=== PATIENT | female | born 1990 | race Caucasian/White ===

== ENCOUNTER 2018-05-04 08:26 | Emergency (ER) | payer BC ==
[~2018-05-04] VITALS: Ht 157.5 cm; Wt 75.0 kg
[2018-05-04] MEDS ORDERED: VALT1TAB PO (08:35)
[2018-05-04] MEDS ORDERED: PRED20TA PO (08:35)
[2018-05-04] MEDS ORDERED: FIOR1CAP PO (08:35)
[2018-05-04] MEDS ORDERED: XANA0.5T PO (08:35)
[2018-05-04] MEDS ORDERED: diphenhydrAMINE INJ 50MG/ML VIAL (J1200) IV STA (09:17)
[2018-05-04 09:19] LABS: BASO % 0.4 % (0.0-1.0); EOS # 0.2 10^3/uL (0.0-0.50); EOS % 2.8 % (0.0-3.0); HEMATOCRIT 42.4 % (36.0-47.0); HEMOGLOBIN 14.2 g/dl (12.0-15.5); LYMPH # 2.1 10^3/uL (1.5-6.5); LYMPH % 38.7 % (24.0-44.0); MEAN CORPUSCULAR HEMOGLOBIN 30.1 pg (27.0-33.0); MEAN CORPUSCULAR HGB CONC 33.5 g/dl (32.0-36.5); MEAN CORPUSCULAR VOLUME 89.8 fl (80.0-96.0); MONO # 0.3 10^3/uL (0.0-0.8); MONO % 5.9 % (0.0-5.0); NEUTROPHILS # 2.8 10^3/uL (1.8-7.7); PLATELET COUNT, AUTOMATED 205 10^3/uL (150-450); RED BLOOD COUNT 4.72 10^6/uL (4.00-5.40); WHITE BLOOD COUNT 5.4 10^3/uL (4.0-10.0)
[2018-05-04 09:25] LABS: APPEARANCE, URINE HAZY (CLEAR); BACTERIA, URINE AUTO NEGATIVE (NEGATIVE); BILIRUBIN, URINE AUTO NEGATIVE (NEGATIVE); BLOOD, URINE BLOOD NEGATIVE (NEGATIVE); CALCIUM OXALATE CRYSTALS LARGE; COLOR, URINE YELLOW (YELLOW); GLUCOSE, URINE (UA) AUTO NEGATIVE (NEGATIVE); KETONE, URINE AUTO TRACE mg/dL (NEGATIVE); LEUKOCYTE ESTERASE, URINE AUTO NEGATIVE (NEGATIVE); MUCUS, URINE SMALL (NEGATIVE); NITRITE, URINE AUTO NEGATIVE (NEGATIVE); PROTEIN, URINE AUTO NEGATIVE (NEGATIVE); RBC, URINE AUTO 12 /HPF (0-3); SPECIFIC GRAVITY URINE AUTO 1.043 (1.002-1.035); SQUAMOUS EPITHELIAL CELL UR AU 3 /HPF (0-6); UROBILINOGEN, URINE AUTO 0.2 mg/dL (0.0-2.0); WBC, URINE AUTO 3 /HPF (0-3)
[2018-05-04] MEDS ORDERED: KETOROLAC 30 MG/ML VIAL (J1885) IV ONE (09:30)
[2018-05-04] MEDS ORDERED: NS 1,000 ML IV ONE (09:30)
[2018-05-04] MEDS ORDERED: METOCLOPRAMIDE INJ 10MG/2ML VIAL (J2765) IV ONE (09:30)
[2018-05-04 09:40] LABS: ALBUMIN 3.9 GM/DL (3.2-5.2); ALT/SGPT 26 U/L (12-78); BILIRUBIN,DIRECT < 0.1 MG/DL (0.0-0.2); BILIRUBIN,TOTAL 0.2 MG/DL (0.2-1.0); BLOOD UREA NITROGEN 11 MG/DL (7-18); CALCIUM LEVEL 8.3 MG/DL (8.5-10.1); CARBON DIOXIDE LEVEL 24 MEQ/L (21-32); CHLORIDE LEVEL 110 MEQ/L (98-107); CREATININE FOR GFR 0.85 MG/DL (0.55-1.30); GLOMERULAR FILTRATION RATE > 60.0 (>60); GLUCOSE, FASTING 95 MG/DL (70-100); POTASSIUM SERUM 3.6 MEQ/L (3.5-5.1); SODIUM LEVEL 144 MEQ/L (136-145)
[2018-05-04 09:51] LABS: INFLUENZA A AMPLIFICATION NEGATIVE (NEGATIVE); INFLUENZA B AMPLIFICATION NEGATIVE (NEGATIVE)
[2018-05-04 09:52] LABS: HCG, SERUM QUALITATIVE NEGATIVE (NEGATIVE)
--- NOTE | 2018-05-04 10:27 | REP ---
Chest one-view HISTORY: SIRS Comparison: None The lungs are clear. The heart is normal in size. The pulmonary vasculature is normal in appearance. Impression: No acute disease. Electronically Signed by Sim Quintana MD 05/04/2018 10:18 A
[2018-05-04] MEDS ORDERED: LORazepam 2 MG/ML VIAL (J2060) IV STA (10:49)
[2018-05-04] MEDS ORDERED: ZOFR4TAB14 PO (12:11)
[2018-05-04] MEDS ORDERED: GABA-843 PO (12:11)
[2018-05-04 12:31] VITALS: BP 108/59
== END 2018-05-04 12:34 | disposition home or self-care (01) ==
LOC: M ED 08:26
DX: B02.9 Zoster without complications (principal); B02.29 Other postherpetic nervous system involvement
CPT/HCPCS: 36415; 71045; 80048; 80076; 81001; 83605; 84703; 85025; 87040; 87086; 87502; 93041; 94760; 96361; 96374; 96375; 99284; J1200; J1885; J2060; J2765

== ENCOUNTER → 2018-08-07 | Outpatient (CLI) | payer BC ==
[~2018-08-07] MED LIST: AUGM875T28 PO; CLON0.5T8 PO; FIOR1CAP PO; GABA-843 PO; LAMI1TAB7 PO; LAMI25TA PO; LEXA1TAB PO; LEXA1TAB2 PO; PRED20TA PO; VALT1TAB PO; XANA0.5T PO; YAZ1TAB PO; ZOFR4TAB14 PO
== END ==
LOC: M LAB 11:25
PROVIDERS: ATTEND Registered Nurse
DX: Z32.01 Encounter for pregnancy test, result positive (principal); N91.2 Amenorrhea, unspecified

== ENCOUNTER → 2019-03-04 | Outpatient (CLI) | payer BC ==
[2019-03-04 12:05] LABS: APPEARANCE, URINE HAZY (CLEAR); BACTERIA, URINE AUTO 1+ (NEGATIVE); BILIRUBIN, URINE AUTO NEGATIVE (NEGATIVE); BLOOD, URINE BLOOD 3+ (NEGATIVE); COLOR, URINE YELLOW (YELLOW); GLUCOSE, URINE (UA) AUTO NEGATIVE (NEGATIVE); KETONE, URINE AUTO NEGATIVE (NEGATIVE); LEUKOCYTE ESTERASE, URINE AUTO 1+ (NEGATIVE); MUCUS, URINE SMALL (NEGATIVE); NITRITE, URINE AUTO NEGATIVE (NEGATIVE); PROTEIN, URINE AUTO NEGATIVE (NEGATIVE); RBC, URINE AUTO 33 /HPF (0-3); SPECIFIC GRAVITY URINE AUTO 1.017 (1.002-1.035); SQUAMOUS EPITHELIAL CELL UR AU 4 /HPF (0-6); UROBILINOGEN, URINE AUTO 0.2 mg/dL (0.0-2.0); WBC, URINE AUTO 14 /HPF (0-3)
[2019-03-04 12:07] LABS: BASO % 0.5 % (0.0-1.0); EOS # 0.1 10^3/uL (0.0-0.5); EOS % 2.2 % (0.0-3.0); HEMATOCRIT 41.9 % (36.0-47.0); HEMOGLOBIN 13.9 g/dl (12.0-15.5); LYMPH # 2.5 10^3/uL (1.5-5.0); LYMPH % 38.5 % (24.0-44.0); MEAN CORPUSCULAR HEMOGLOBIN 29.1 pg (27.0-33.0); MEAN CORPUSCULAR HGB CONC 33.2 g/dl (32.0-36.5); MEAN CORPUSCULAR VOLUME 87.8 fl (80.0-96.0); MONO # 0.3 10^3/uL (0.0-0.8); NEUTROPHILS # 3.5 10^3/uL (1.5-8.5); NEUTROPHILS % 53.6 % (36.0-66.0); PLATELET COUNT, AUTOMATED 195 10^3/uL (150-450); RED BLOOD COUNT 4.77 10^6/uL (4.00-5.40); WHITE BLOOD COUNT 6.5 10^3/uL (4.0-10.0)
[2019-03-04 12:42] LABS: ALBUMIN 3.9 GM/DL (3.2-5.2); ALT/SGPT 26 U/L (12-78); BILIRUBIN,TOTAL 0.6 MG/DL (0.2-1.0); BLOOD UREA NITROGEN 8 MG/DL (7-18); CALCIUM LEVEL 8.5 MG/DL (8.5-10.1); CARBON DIOXIDE LEVEL 26 MEQ/L (21-32); CHLORIDE LEVEL 106 MEQ/L (98-107); CHOLESTEROL LEVEL 254 MG/DL (<200); CHOLESTEROL RISK RATIO 3.386 (<5); CREATININE FOR GFR 0.81 MG/DL (0.55-1.30); GLOMERULAR FILTRATION RATE > 60.0 (>60); GLUCOSE, FASTING 83 MG/DL (70-100); HDL CHOLESTEROL 75 MG/DL (>40); LDL CHOLESTEROL 147 MG/DL (<100); NON-HDL-C 179 MG/DL; POTASSIUM SERUM 3.8 MEQ/L (3.5-5.1); SODIUM LEVEL 139 MEQ/L (136-145); TOTAL PROTEIN 6.9 GM/DL (6.4-8.2); TRIGLYCERIDES LEVEL 160 MG/DL (<150)
[2019-03-05 08:17] LABS: TOTAL 25(OH) VITAMIN D 22.4 NG/ML (30.0-100.0)
[2019-03-05 08:57] LABS: HIV 1&2 SCREEN CENTAUR NEGATIVE (NEGATIVE)
== END ==
LOC: M LAB 11:22
PROVIDERS: ATTEND Registered Nurse
DX: N26.1 Atrophy of kidney (terminal) (principal); E66.9 Obesity, unspecified

== ENCOUNTER → 2019-03-12 | Outpatient (CLI) | payer BC ==
[~2019-03-12] MED LIST changes: +PROHANCE 279.3MG/ML 15ML VIAL (A9576) As Ordered ONE; +PROHANCE 279.3MG/ML 5ML VIAL (A9576) As Ordered ONE
--- NOTE | 2019-03-12 16:57 | REP ---
MRI brain: 03/13/2019. Indication: Unequal pupils. Blurred vision. Comparison: None. Technique: Multiplanar short and long TR sequences of the brain were obtained without IV Gadolinium. Findings: There are no areas of restricted diffusion. There is no intracranial mass effect or hydrocephalous. No significant intracranial hemorrhage is present. No significant signal abnormalities are present within the brainstem or brain parenchyma. The large intracranial flow voids are present and unremarkable. The midline structures, and craniocervical junction are unremarkable. No significant ocular or intraorbital abnormalities are detected. Impression: No acute intracranial process. Unremarkable brain. Electronically Signed by Juliocesar Reyes DO 03/12/2019 04:49 P
== END ==
LOC: M RAD 15:17
PROVIDERS: ATTEND Registered Nurse
DX: H57.02 Anisocoria (principal)

== ENCOUNTER → 2019-05-12 | Outpatient (CLI) | payer BC ==
[~2019-05-12] MED LIST changes: +CLON0.5T2 PO; -CLON0.5T8 PO; -PROHANCE 279.3MG/ML 15ML VIAL (A9576) As Ordered ONE; -PROHANCE 279.3MG/ML 5ML VIAL (A9576) As Ordered ONE
== END ==
LOC: M LAB 12:55
PROVIDERS: ATTEND Registered Nurse
DX: N91.2 Amenorrhea, unspecified (principal)

== ENCOUNTER 2019-11-22 12:11 | Outpatient (RCR) | payer BC | END 2019-11-23 | LOC: M PT 12:11 | PROVIDERS: ATTEND Specialist | DX: S43.005D Unspecified dislocation of left shoulder joint, subsequent encounter (principal); S42.252D Displaced fracture of greater tuberosity of left humerus, subsequent encounter for fracture with routine healing; G54.0 Brachial plexus disorders; V86.95XA Unspecified occupant of 3- or 4- wheeled all-terrain vehicle (ATV) injured in nontraffic accident, initial encounter; Y99.8 Other external cause status; Y92.9 Unspecified place or not applicable ==

== ENCOUNTER → 2020-06-19 | Outpatient (CLI) | payer BC ==
[~2020-06-19] MED LIST changes: +GABA-282 PO; -GABA-843 PO
--- NOTE | 2020-06-20 09:26 | REP ---
INDICATION: INFERTILITY COMPARISON: None. TECHNIQUE: Transabdominal pelvic ultrasound followed by transvaginal examination for better evaluation of the endometrium and adnexa with color Doppler evaluation of the ovaries. FINDINGS: Bladder is unremarkable and measures 8.4 x 10.7 x 7.1 cm. Normal anteverted uterus measures 5.9 x 2.4 x 3.2 cm. The endometrial complex measures 4.0 mm thickness. No discrete uterine or endometrial abnormalities are appreciated. The right ovary is normal in appearance and vascularity without torsion measuring 3.0 x 2.0 x 2.4 cm (RI 0.57). The left ovary/adnexa measures 5.7 x 4.4 x 6.1 cm (RI 0.51) and includes a 5.7 x 4.0 x 5.0 cm complex cystic mass with fat components and shadowing possibly reflecting dermoid cyst. Trace pelvic free fluid is nonspecific. IMPRESSION: 1. Normal uterus and right ovary. 2. Right adnexal lesion as described above may represent dermoid cyst/teratoma. Consider correlation and follow-up with CT or MRI for further investigation and confirmation. <Electronically signed by David Curtis > 06/20/20 0922
== END ==
LOC: M RAD 12:30
PROVIDERS: ATTEND Obstetrics & Gynecology
DX: Z01.419 Encounter for gynecological examination (general) (routine) without abnormal findings (principal); N97.9 Female infertility, unspecified

== ENCOUNTER → 2020-08-07 | Outpatient (CLI) | payer BC ==
--- NOTE | 2020-08-07 09:55 | REP ---
INDICATION: OVARIAN CYST FOLLOW UP COMPARISON: 06/19/2020 TECHNIQUE: Transabdominal pelvic ultrasound followed by transvaginal examination for better evaluation of the endometrium and adnexa with color Doppler evaluation of the ovaries. FINDINGS: Bladder is unremarkable and measures 6.7 x 4.2 x 3.4 cm. Normal anteverted uterus measures 6.2 x 2.6 x 3.4 cm. The endometrial complex measures 6.2 mm thickness. No discrete uterine or endometrial abnormalities are appreciated. Right ovary is normal in appearance and vascularity measuring 3.2 x 2.0 x 2.6 cm (RI 0.46) and includes 1.5 cm presumed physiologic cyst/dominant follicle. The left ovary measures 5.6 x 4.8 x 5.8 cm (RI 0.58) and again includes a 5.7 x 4.6 x 5.8 cm complex lesion containing fluid, fat, and possible calcifications with posterior shadowing unchanged from prior examination and compatible with teratoma/dermoid. Small amount of free fluid in the pelvis is nonspecific and likely physiologic. IMPRESSION: 1. Complex lesion in the LEFT ovary again noted and compatible with dermoid/teratoma. (Previous report erroneously mentions this to be in the right ovary in the impression but correctly noted as left sided lesion in the findings). 2. Normal uterus and right ovary. <Electronically signed by David Curtis > 08/07/20 0951
== END ==
LOC: M RAD 09:14
PROVIDERS: ATTEND Obstetrics & Gynecology
DX: N83.292 Other ovarian cyst, left side (principal)

== ENCOUNTER → 2021-03-15 | Outpatient (REF) ==
[2021-03-15 13:15] LABS: RSV AMPLIFICATION NEGATIVE (NEGATIVE)
== END ==
LOC: M EMP 11:46
PROVIDERS: ATTEND Family Medicine
DX: Z20.822 Contact with and (suspected) exposure to COVID-19 (principal)

== ENCOUNTER → 2021-03-21 | Outpatient (REF) | LOC: M LABSMTC 11:32 | PROVIDERS: ATTEND Pediatrics | DX: Z20.822 Contact with and (suspected) exposure to COVID-19 (principal) ==

== ENCOUNTER → 2021-05-24 | Outpatient (REF) ==
[2021-05-24 08:11] LABS: RSV AMPLIFICATION NEGATIVE (NEGATIVE)
== END ==
LOC: M EMP 07:25
PROVIDERS: ATTEND Family Medicine
DX: Z20.822 Contact with and (suspected) exposure to COVID-19 (principal)

== ENCOUNTER → 2021-06-13 | Outpatient (REF) | LOC: M LABSMTC 10:18 | PROVIDERS: ATTEND Pediatrics | DX: Z11.52 Encounter for screening for COVID-19 (principal) ==

== ENCOUNTER → 2021-06-15 | Outpatient (REF) | LOC: M LABSMTC 13:31 | PROVIDERS: ATTEND Pediatrics | DX: Z11.52 Encounter for screening for COVID-19 (principal) ==

== ENCOUNTER → 2021-10-11 | Outpatient (REF) ==
[2021-10-11 08:35] LABS: RSV AMPLIFICATION NEGATIVE (NEGATIVE)
== END ==
LOC: M EMP 07:44
PROVIDERS: ATTEND Family Medicine
DX: Z20.822 Contact with and (suspected) exposure to COVID-19 (principal); Z11.52 Encounter for screening for COVID-19

== ENCOUNTER → 2021-12-25 | Outpatient (REF) | LOC: M EMP 08:41 | PROVIDERS: ATTEND Family Medicine | DX: Z11.52 Encounter for screening for COVID-19 (principal) ==

== ENCOUNTER → 2021-12-26 | Outpatient (REF) | LOC: M EMP 08:36 | PROVIDERS: ATTEND Family Medicine | DX: Z11.52 Encounter for screening for COVID-19 (principal) ==

== ENCOUNTER → 2021-12-26 | Outpatient (REF) | LOC: M EMP 08:37 | PROVIDERS: ATTEND Family Medicine | DX: Z11.52 Encounter for screening for COVID-19 (principal) ==

== ENCOUNTER → 2022-04-22 | Outpatient (CLI) | payer BC | LOC: M LAB 08:02 | PROVIDERS: ATTEND Obstetrics & Gynecology | DX: Z32.00 Encounter for pregnancy test, result unknown (principal) ==

== ENCOUNTER → 2022-04-24 | Outpatient (CLI) | payer BC | LOC: M LAB 06:50 | PROVIDERS: ATTEND Obstetrics & Gynecology | DX: O09.00 Supervision of pregnancy with history of infertility, unspecified trimester (principal) ==

== ENCOUNTER → 2022-04-26 | Outpatient (CLI) | payer BC | LOC: M LAB 07:11 | PROVIDERS: ATTEND Obstetrics & Gynecology | DX: O09.00 Supervision of pregnancy with history of infertility, unspecified trimester (principal); Z3A.00 Weeks of gestation of pregnancy not specified ==

== ENCOUNTER → 2022-04-29 | Outpatient (CLI) | payer BC | LOC: M LAB 07:09 | PROVIDERS: ATTEND Obstetrics & Gynecology | DX: O09.00 Supervision of pregnancy with history of infertility, unspecified trimester (principal) ==

== ENCOUNTER → 2022-05-30 | Outpatient (REF) | payer BC ==
[2022-05-30 13:29] LABS: HEMATOCRIT 43.3 % (36.0-47.0); HEMOGLOBIN 14.3 g/dl (12.0-15.5); MEAN CORPUSCULAR HEMOGLOBIN 29.6 pg (27.0-33.0); MEAN CORPUSCULAR VOLUME 89.6 fl (80.0-96.0); PLATELET COUNT, AUTOMATED 191 10^3/uL (150-450); RED BLOOD COUNT 4.83 10^6/uL (4.00-5.40); WHITE BLOOD COUNT 6.9 10^3/uL (4.0-10.0)
[2022-05-30 14:26] LABS: HIV 1&2 SCREEN CENTAUR NEGATIVE (NEGATIVE)
[2022-05-30 14:34] LABS: HEPATITIS C VIRUS ABY INDEX 0.1 INDEX (<0.8)
[2022-05-30 14:36] LABS: HCG, SERUM QUANTITATIVE 113817.5 MIU/ML (<4.2)
== END ==
LOC: M LAB REF 12:20
PROVIDERS: ATTEND Obstetrics & Gynecology
DX: Z34.81 Encounter for supervision of other normal pregnancy, first trimester (principal)

== ENCOUNTER → 2022-06-11 | Outpatient (REF) ==
[2022-06-11 11:04] LABS: RSV AMPLIFICATION NEGATIVE (NEGATIVE)
== END ==
LOC: M EMP 09:11
PROVIDERS: ATTEND Family Medicine
DX: Z20.822 Contact with and (suspected) exposure to COVID-19 (principal)

== ENCOUNTER → 2022-06-17 | Outpatient (REF) ==
[2022-06-17 10:55] LABS: RSV AMPLIFICATION NEGATIVE (NEGATIVE)
== END ==
LOC: M EMP 08:34
PROVIDERS: ATTEND Family Medicine
DX: Z00.00 Encounter for general adult medical examination without abnormal findings (principal)

== ENCOUNTER → 2022-07-16 | Outpatient (REF) ==
[~2022-07-16] MED LIST changes: +BUTA-198
== END ==
LOC: M LABSMTC 09:18
PROVIDERS: ATTEND Family Medicine
DX: Z20.822 Contact with and (suspected) exposure to COVID-19 (principal)

== ENCOUNTER 2022-07-17 09:14 | Emergency (ER) | payer BC ==
[~2022-07-17] VITALS: Ht 157.5 cm; Wt 81.8 kg
[~2022-07-17 09:14] MED LIST changes: -BUTA-198
[2022-07-17] MEDS ORDERED: BUTA-198 (09:25)
[2022-07-17 10:06] LABS: BASO % 0.1 % (0.0-1.0); EOS % 0.5 % (0.0-3.0); HEMATOCRIT 42.6 % (36.0-47.0); HEMOGLOBIN 14.5 g/dl (12.0-15.5); LYMPH # 1.6 10^3/uL (1.5-5.0); LYMPH % 19.4 % (24.0-44.0); MEAN CORPUSCULAR HEMOGLOBIN 29.8 pg (27.0-33.0); MEAN CORPUSCULAR VOLUME 87.5 fl (80.0-96.0); MONO # 0.4 10^3/uL (0.0-0.8); MONO % 4.2 % (2.0-8.0); NEUTROPHILS # 6.4 10^3/uL (1.5-8.5); NEUTROPHILS % 75.4 % (36.0-66.0); PLATELET COUNT, AUTOMATED 170 10^3/uL (150-450); RED BLOOD COUNT 4.87 10^6/uL (4.00-5.40); WHITE BLOOD COUNT 8.4 10^3/uL (4.0-10.0)
[2022-07-17 10:13] LABS: APPEARANCE, URINE HAZY (CLEAR); BACTERIA, URINE AUTO 1+ (NEGATIVE); BILIRUBIN, URINE AUTO NEGATIVE (NEGATIVE); BLOOD, URINE BLOOD NEGATIVE (NEGATIVE); COLOR, URINE YELLOW (YELLOW); GLUCOSE, URINE (UA) AUTO NEGATIVE (NEGATIVE); KETONE, URINE AUTO NEGATIVE (NEGATIVE); LEUKOCYTE ESTERASE, URINE AUTO NEGATIVE (NEGATIVE); MUCUS, URINE SMALL (NEGATIVE); NITRITE, URINE AUTO NEGATIVE (NEGATIVE); PROTEIN, URINE AUTO NEGATIVE (NEGATIVE); RBC, URINE AUTO 0 /HPF (0-3); SPECIFIC GRAVITY URINE AUTO 1.034 (1.002-1.035); SQUAMOUS EPITHELIAL CELL UR AU 5 /HPF (0-6); UROBILINOGEN, URINE AUTO 0.2 mg/dL (0.0-2.0); WBC, URINE AUTO 1 /HPF (0-3)
[2022-07-17 10:34] LABS: LIPASE 24 U/L (12-53)
[2022-07-17 11:16] LABS: ALBUMIN 3.2 G/DL (3.2-5.2); ALKALINE PHOSPHATASE 57 U/L (46-116); ALT/SGPT 10 U/L (7.0-40); AST/SGOT 13 U/L (<34); BILIRUBIN,DIRECT < 0.1 MG/DL (<0.4); BILIRUBIN,TOTAL 0.4 MG/DL (0.3-1.2); BLOOD UREA NITROGEN 8 MG/DL (9-23); CALCIUM LEVEL 9.1 MG/DL (8.5-10.1); CARBON DIOXIDE LEVEL 23 MMOL/L (20-31); CHLORIDE LEVEL 105 MMOL/L (98-107); CREATININE FOR GFR 0.56 MG/DL (0.55-1.30); GLOMERULAR FILTRATION RATE > 60.0 (>60); GLUCOSE, FASTING 87 MG/DL (60-100); SODIUM LEVEL 136 MMOL/L (136-145)
[2022-07-17] MEDS ORDERED: ACETAMINOPHEN 500 MG TAB PO ONE (11:55)
[2022-07-17] MEDS ORDERED: NS 1,000 ML IV ONE (11:55)
[2022-07-17 14:02] VITALS: BP 116/64
[2022-07-17 18:13] LABS: TOTAL PROTEIN 6.7 G/DL (5.7-8.2)
== END 2022-07-17 14:01 | disposition home or self-care (01) ==
LOC: M ED 09:14
DX: R10.9 Unspecified abdominal pain (principal)

== ENCOUNTER → 2022-07-22 | Outpatient (REF) ==
[~2022-07-22] MED LIST changes: +BUTA-198
== END ==
LOC: M EMP 07:51
PROVIDERS: ATTEND Family Medicine
DX: Z11.52 Encounter for screening for COVID-19 (principal)

== ENCOUNTER → 2022-08-20 | Outpatient (CLI) | payer BC | LOC: M WHC 11:23 | PROVIDERS: ATTEND Advanced Practice Midwife | DX: O09.812 Supervision of pregnancy resulting from assisted reproductive technology, second trimester (principal); Z3A.21 21 weeks gestation of pregnancy ==

== ENCOUNTER 2022-09-11 05:19 | Emergency (ER) | payer BC ==
[~2022-09-11] VITALS: Ht 157.5 cm; Wt 83.2 kg
[2022-09-11 05:20] VITALS: BP 118/71
[2022-09-11] MEDS ORDERED: BUSP5TA (05:27)
[2022-09-11] MEDS ORDERED: LAMO25TA4 (05:27)
== END 2022-09-11 09:00 | disposition home or self-care (01) ==
LOC: M ED 05:19
DX: M79.661 Pain in right lower leg (principal); Z3A.24 24 weeks gestation of pregnancy

== ENCOUNTER → 2022-09-23 | Outpatient (CLI) | payer BC ==
[~2022-09-23] MED LIST changes: +BUSP5TA; +LAMO25TA4
[2022-09-23 10:51] LABS: HEMATOCRIT 37.7 % (36.0-47.0); HEMOGLOBIN 12.2 g/dl (12.0-15.5); MEAN CORPUSCULAR HEMOGLOBIN 29.5 pg (27.0-33.0); MEAN CORPUSCULAR HGB CONC 32.4 g/dl (32.0-36.5); MEAN CORPUSCULAR VOLUME 91.3 fl (80.0-96.0); PLATELET COUNT, AUTOMATED 166 10^3/uL (150-450); RED BLOOD COUNT 4.13 10^6/uL (4.00-5.40); WHITE BLOOD COUNT 9.3 10^3/uL (4.0-10.0)
[2022-09-23 12:28] LABS: GC DNA AMPLIFICATION NEGATIVE (NEGATIVE)
== END ==
LOC: M PLALAB 08:07
PROVIDERS: ATTEND Advanced Practice Midwife
DX: O99.342 Other mental disorders complicating pregnancy, second trimester (principal); Z3A.00 Weeks of gestation of pregnancy not specified

== ENCOUNTER → 2022-10-23 | Outpatient (REF) | LOC: M EMP 08:52 | PROVIDERS: ATTEND Family Medicine | DX: Z11.52 Encounter for screening for COVID-19 (principal) ==

== ENCOUNTER 2022-11-27 14:38 | Emergency (ER) | payer BC ==
[~2022-11-27] VITALS: Ht 157.5 cm; Wt 85.4 kg
[~2022-11-27 14:38] MED LIST changes: -BUSP5TA; +BUSP5TA PO; -BUTA-198; +BUTA-198 PO; -LAMO25TA4; +LAMO25TA4 PO
[2022-11-27] MEDS ORDERED: MULTTAB20 PO (14:48)
[2022-11-27 15:30] LABS: BASO % 0.1 % (0.0-1.0); EOS % 0.2 % (0.0-3.0); HEMATOCRIT 33.8 % (36.0-47.0); HEMOGLOBIN 11.3 g/dl (12.0-15.5); LYMPH # 1.7 10^3/uL (1.5-5.0); LYMPH % 18.4 % (24.0-44.0); MEAN CORPUSCULAR HEMOGLOBIN 28.2 pg (27.0-33.0); MEAN CORPUSCULAR HGB CONC 33.4 g/dl (32.0-36.5); MEAN CORPUSCULAR VOLUME 84.3 fl (80.0-96.0); MONO # 0.4 10^3/uL (0.0-0.8); MONO % 4.6 % (2.0-8.0); NEUTROPHILS % 76.2 % (36.0-66.0); PLATELET COUNT, AUTOMATED 182 10^3/uL (150-450); RED BLOOD COUNT 4.01 10^6/uL (4.00-5.40); WHITE BLOOD COUNT 9.2 10^3/uL (4.0-10.0)
[2022-11-27 16:06] LABS: LIPASE 24 U/L (12-53)
[2022-11-27 16:08] LABS: ALBUMIN 2.8 G/DL (3.2-5.2); ALKALINE PHOSPHATASE 115 U/L (46-116); ALT/SGPT 10 U/L (7.0-40); AST/SGOT < 8 U/L (<34); BILIRUBIN,DIRECT < 0.1 MG/DL (<0.4); BILIRUBIN,TOTAL 0.4 MG/DL (0.3-1.2); TOTAL PROTEIN 5.9 G/DL (5.7-8.2)
[2022-11-27 16:20] LABS: HCG, SERUM QUANTITATIVE 28455.8 MIU/ML (<4.2)
[2022-11-27] MEDS ORDERED: NS 1,000 ML IV ONE (16:25)
[2022-11-27 17:02] LABS: BLOOD UREA NITROGEN < 5 MG/DL (9-23); CALCIUM LEVEL 8.1 MG/DL (8.5-10.1); CARBON DIOXIDE LEVEL 21 MMOL/L (20-31); CHLORIDE LEVEL 109 MMOL/L (98-107); GLOMERULAR FILTRATION RATE > 60.0 (>60); GLUCOSE, FASTING 105 MG/DL (60-100); POTASSIUM SERUM 3.6 MMOL/L (3.5-5.1); SODIUM LEVEL 139 MMOL/L (136-145)
[2022-11-27] MEDS ORDERED: ONDA4TAB6 PO (18:15)
[2022-11-27 19:57] VITALS: BP 134/77; TEMP 97.7; O2SAT 98
[2022-12-03] MEDS ORDERED: OXYC-517 PO (15:01)
[2022-12-03] MEDS ORDERED: ACET-683 PO (15:01)
== END 2022-11-27 20:08 | disposition home or self-care (01) ==
LOC: M ED 14:38
DX: O99.891 Other specified diseases and conditions complicating pregnancy (principal); E86.0 Dehydration; Z3A.00 Weeks of gestation of pregnancy not specified

== ENCOUNTER 2022-12-01 02:33 | Outpatient (CLI) | payer BC ==
[~2022-12-01] VITALS: Ht 157.5 cm; Wt 85.0 kg
[~2022-12-01 02:33] MED LIST changes: +MULTTAB20 PO; +ONDA4TAB6 PO
[2022-12-01 02:45] VITALS: TEMP 98.8
[2022-12-01 02:47] VITALS: BP 159/91
[2022-12-01] MEDS ORDERED: LR 800 ML IV ONE (03:00)
[2022-12-01] MEDS ORDERED: BICITRA 30ML SOLN UDC PO ONE (03:00)
[2022-12-01] MEDS ORDERED: LR 1,000 ML IV SCH (03:00)
[2022-12-01 03:45] LABS: BASO % 0.2 % (0.0-1.0); EOS % 0.1 % (0.0-3.0); LYMPH # 1.8 10^3/uL (1.5-5.0); LYMPH % 14.9 % (24.0-44.0); MEAN CORPUSCULAR HEMOGLOBIN 27.7 pg (27.0-33.0); MEAN CORPUSCULAR HGB CONC 32.4 g/dl (32.0-36.5); MEAN CORPUSCULAR VOLUME 85.5 fl (80.0-96.0); MONO # 0.5 10^3/uL (0.0-0.8); MONO % 4.2 % (2.0-8.0); NEUTROPHILS # 9.8 10^3/uL (1.5-8.5); NEUTROPHILS % 80.1 % (36.0-66.0); PLATELET COUNT, AUTOMATED 182 10^3/uL (150-450); RED BLOOD COUNT 4.33 10^6/uL (4.00-5.40); WHITE BLOOD COUNT 12.2 10^3/uL (4.0-10.0)
[2022-12-01 04:31] LABS: ALBUMIN 2.9 G/DL (3.2-5.2); ALKALINE PHOSPHATASE 138 U/L (46-116); ALT/SGPT 10 U/L (7.0-40); AST/SGOT 12 U/L (<34); BILIRUBIN,TOTAL 0.4 MG/DL (0.3-1.2); BLOOD UREA NITROGEN < 5 MG/DL (9-23); CALCIUM LEVEL 8.4 MG/DL (8.5-10.1); CARBON DIOXIDE LEVEL 22 MMOL/L (20-31); CHLORIDE LEVEL 107 MMOL/L (98-107); CREATININE FOR GFR 0.54 MG/DL (0.55-1.30); GLOMERULAR FILTRATION RATE > 60.0 (>60); GLUCOSE, FASTING 118 MG/DL (60-100); POTASSIUM SERUM 3.7 MMOL/L (3.5-5.1); SODIUM LEVEL 139 MMOL/L (136-145); TOTAL PROTEIN 6.4 G/DL (5.7-8.2)
[2022-12-01 04:37] VITALS: BP 142/70
[2022-12-01] MEDS ORDERED: MORPHINE 2 MG/ML 1ML VIAL IV ONE (04:50)
[2022-12-01 05:05] LABS: TOTAL PROTEIN,RANDOM URINE 20.2 MG/DL (0.0-14.0)
[2022-12-01 05:08] LABS: AMPHETAMINES LEVEL URINE NEGATIVE (NEGATIVE); BENZODIAZEPINES URINE NEGATIVE (NEGATIVE); CANNABINOIDS URINE NEGATIVE (NEGATIVE); COCAINE METABOLITE URINE NEGATIVE (NEGATIVE); METHADONE URINE NEGATIVE (NEGATIVE); PHENCYCLIDINE URINE NEGATIVE (NEGATIVE)
[2022-12-01 05:10] LABS: CREATININE,RANDOM URINE 94.3 MG/DL
[2022-12-01 05:11] LABS: BARBITURATES URINE POSITIVE (NEGATIVE); OPIATES URINE POSITIVE (NEGATIVE)
[2022-12-01] MEDS ORDERED: FAMO40TA3 PO (13:13)
[2022-12-03] MEDS ORDERED: ACET-683 PO (15:01)
[2022-12-03] MEDS ORDERED: OXYC-517 PO (15:01)
== END 2022-12-01 09:15 | disposition home or self-care (01) ==
LOC: M LDO 02:33
PROVIDERS: ATTEND Obstetrics & Gynecology
DX: O26.893 Other specified pregnancy related conditions, third trimester (principal); R10.11 Right upper quadrant pain; O99.343 Other mental disorders complicating pregnancy, third trimester; F41.9 Anxiety disorder, unspecified; F32.A Depression, unspecified; O26.833 Pregnancy related renal disease, third trimester; N28.89 Other specified disorders of kidney and ureter; Z3A.35 35 weeks gestation of pregnancy; Z79.899 Other long term (current) drug therapy
CPT/HCPCS: 59025; 76705; 76816; 76819; 76820; 80053; 80307; 81001; 82570; 84156; 85025; 87081; 96374; G0463

== ENCOUNTER 2022-12-25 11:50 | Emergency (ER) | payer BC ==
[~2022-12-25] VITALS: Ht 157.5 cm; Wt 75.2 kg
[~2022-12-25 11:50] MED LIST changes: +ACET-683 PO; +FAMO40TA3 PO; +IBUP80TA PO; +OXYC-517 PO
[2022-12-25] MEDS ORDERED: cefTRIAXone SOD 1 GM in D5W MINI-BAG PLUS 50 ML IV ONE (15:55)
[2022-12-25 17:31] LABS: BASO % 0.3 % (0.0-1.0); EOS # 0.1 10^3/uL (0.0-0.5); EOS % 0.6 % (0.0-3.0); HEMATOCRIT 43.6 % (36.0-47.0); LYMPH % 20.7 % (24.0-44.0); MEAN CORPUSCULAR HEMOGLOBIN 26.9 pg (27.0-33.0); MEAN CORPUSCULAR HGB CONC 32.1 g/dl (32.0-36.5); MEAN CORPUSCULAR VOLUME 83.8 fl (80.0-96.0); MONO # 0.8 10^3/uL (0.0-0.8); MONO % 8.7 % (2.0-8.0); NEUTROPHILS # 6.5 10^3/uL (1.5-8.5); NEUTROPHILS % 68.9 % (36.0-66.0); PLATELET COUNT, AUTOMATED 251 10^3/uL (150-450); WHITE BLOOD COUNT 9.5 10^3/uL (4.0-10.0)
[2022-12-25 17:37] LABS: ALBUMIN 3.2 G/DL (3.2-5.2); ALKALINE PHOSPHATASE 141 U/L (46-116); ALT/SGPT 16 U/L (7.0-40); AST/SGOT 21 U/L (<34); BILIRUBIN,DIRECT 0.2 MG/DL (<0.4); BILIRUBIN,TOTAL 0.7 MG/DL (0.3-1.2); BLOOD UREA NITROGEN 8 MG/DL (9-23); CALCIUM LEVEL 9.5 MG/DL (8.5-10.1); CARBON DIOXIDE LEVEL 19 MMOL/L (20-31); CHLORIDE LEVEL 101 MMOL/L (98-107); CREATININE FOR GFR 0.62 MG/DL (0.55-1.30); GLOMERULAR FILTRATION RATE > 60.0 (>60); GLUCOSE, FASTING 61 MG/DL (60-100); POTASSIUM SERUM 3.9 MMOL/L (3.5-5.1); SODIUM LEVEL 136 MMOL/L (136-145)
[2022-12-25] MEDS ORDERED: ISOVUE-370 76% 100ML VIAL As Ordered ONE (18:03)
[2022-12-25 19:00] VITALS: BP 135/63; TEMP 97.9; O2SAT 100
[2022-12-25] MEDS ORDERED: CIPROFLOXACIN 500MG TABLET PO ONE (19:35)
[2022-12-25] MEDS ORDERED: CIPR-249 PO (19:37)
== END 2022-12-25 19:50 | disposition home or self-care (01) ==
LOC: M ED 11:50
DX: N10 Acute pyelonephritis (principal); F41.9 Anxiety disorder, unspecified; F32.A Depression, unspecified; Z87.891 Personal history of nicotine dependence; Z96.0 Presence of urogenital implants; Z79.899 Other long term (current) drug therapy
CPT/HCPCS: 74177; 80048; 80076; 81001; 83605; 85025; 87040; 87086; 96365; 96366; 99284; J0696; Q9967

== ENCOUNTER → 2023-06-27 | Outpatient (REF) | payer BC ==
[~2023-06-27] MED LIST changes: +CIPR-249 PO
== END ==
LOC: M LAB REF 16:11
PROVIDERS: ATTEND Otolaryngology
DX: H65.21 Chronic serous otitis media, right ear (principal)

== ENCOUNTER → 2023-08-01 | Outpatient (REF) | payer BC | LOC: M SFHCWAGY 10:59 | PROVIDERS: ATTEND Advanced Practice Midwife | DX: Z12.4 Encounter for screening for malignant neoplasm of cervix (principal) | CPT/HCPCS: 87624; G0123 ==

== ENCOUNTER → 2023-10-30 | Outpatient (CLI) | payer BC ==
[~2023-10-30] MED LIST changes: +ONDA-282 PO; -ONDA4TAB6 PO
== END ==
LOC: M RAD 07:40
PROVIDERS: ATTEND Registered Nurse
DX: N26.1 Atrophy of kidney (terminal) (principal); N28.81 Hypertrophy of kidney

== ENCOUNTER 2023-12-10 07:24 | Emergency (ER) | payer BC ==
[~2023-12-10] VITALS: Ht 157.5 cm; Wt 83.5 kg
[2023-12-10] MEDS ORDERED: CLON0.5T17 PO (07:30)
[2023-12-10] MEDS ORDERED: BUTA1CAP PO (07:30)
[2023-12-10] MEDS ORDERED: BUSP30TA PO (07:30)
[2023-12-10] MEDS ORDERED: METF500T13 PO (07:30)
[2023-12-10] MEDS ORDERED: LAMI1TAB7 PO (07:30)
[2023-12-10 08:27] LABS: APPEARANCE, URINE HAZY (CLEAR); BACTERIA, URINE AUTO NEGATIVE (NEGATIVE); BILIRUBIN, URINE AUTO NEGATIVE (NEGATIVE); BLOOD, URINE BLOOD NEGATIVE (NEGATIVE); COLOR, URINE YELLOW (YELLOW); GLUCOSE, URINE (UA) AUTO NEGATIVE (NEGATIVE); KETONE, URINE AUTO NEGATIVE (NEGATIVE); LEUKOCYTE ESTERASE, URINE AUTO NEGATIVE (NEGATIVE); MUCUS, URINE SMALL (NEGATIVE); NITRITE, URINE AUTO NEGATIVE (NEGATIVE); PROTEIN, URINE AUTO NEGATIVE (NEGATIVE); RBC, URINE AUTO 0 /HPF (0-3); SPECIFIC GRAVITY URINE AUTO 1.021 (1.002-1.035); SQUAMOUS EPITHELIAL CELL UR AU 2 /HPF (0-6); UROBILINOGEN, URINE AUTO 0.2 mg/dL (0.0-2.0); WBC, URINE AUTO 0 /HPF (0-3)
[2023-12-10 08:54] LABS: BASO % 0.6 % (0.0-1.0); EOS # 0.1 10^3/uL (0.0-0.5); EOS % 1.4 % (0.0-3.0); HEMATOCRIT 42.6 % (36.0-47.0); HEMOGLOBIN 14.1 g/dl (12.0-15.5); LYMPH % 38.1 % (24.0-44.0); MEAN CORPUSCULAR HEMOGLOBIN 28.4 pg (27.0-33.0); MEAN CORPUSCULAR HGB CONC 33.1 g/dl (32.0-36.5); MEAN CORPUSCULAR VOLUME 85.7 fl (80.0-96.0); MONO # 0.4 10^3/uL (0.0-0.8); MONO % 7.2 % (2.0-8.0); NEUTROPHILS # 2.7 10^3/uL (1.5-8.5); NEUTROPHILS % 52.5 % (36.0-66.0); PLATELET COUNT, AUTOMATED 221 10^3/uL (150-450); RED BLOOD COUNT 4.97 10^6/uL (4.00-5.40); WHITE BLOOD COUNT 5.2 10^3/uL (4.0-10.0)
[2023-12-10] MEDS: NS 1,000 ML IV ONE (09:02)
[2023-12-10] MEDS: KETOROLAC 30 MG/ML 1ML VIAL IV ONE (09:03)
[2023-12-10 09:21] LABS: HCG, SERUM QUALITATIVE NEGATIVE (NEGATIVE)
[2023-12-10 09:23] LABS: ALKALINE PHOSPHATASE 77 U/L (46-116); ALT/SGPT 47 U/L (7.0-40); AST/SGOT 24 U/L (<34); BILIRUBIN,TOTAL 0.4 MG/DL (0.3-1.2); BLOOD UREA NITROGEN 9 MG/DL (9-23); CALCIUM LEVEL 9.4 MG/DL (8.5-10.1); CARBON DIOXIDE LEVEL 22 MMOL/L (20-31); CHLORIDE LEVEL 109 MMOL/L (98-107); CREATININE FOR GFR 0.66 MG/DL (0.55-1.30); GLOMERULAR FILTRATION RATE > 60.0 (>60); GLUCOSE, FASTING 95 MG/DL (60-100); POTASSIUM SERUM 4.1 MMOL/L (3.5-5.1); SODIUM LEVEL 139 MMOL/L (136-145); TOTAL PROTEIN 6.9 G/DL (5.7-8.2)
[2023-12-10] MEDS ORDERED: NAPR-837 PO (11:14)
[2023-12-10] MEDS ORDERED: CYCL-707 PO (11:14)
[2023-12-10 11:18] VITALS: BP 121/78; TEMP 97; O2SAT 97
== END 2023-12-10 11:22 | disposition home or self-care (01) ==
LOC: M ED 07:24
DX: N26.1 Atrophy of kidney (terminal) (principal); M54.50 Low back pain, unspecified; R11.2 Nausea with vomiting, unspecified; Z79.1 Long term (current) use of non-steroidal anti-inflammatories (NSAID); Z79.84 Long term (current) use of oral hypoglycemic drugs; Z79.899 Other long term (current) drug therapy
CPT/HCPCS: 74176; 80053; 81001; 84703; 85025; 96361; 96374; 99284; J1885

== ENCOUNTER → 2024-06-30 | Outpatient (REF) ==
[~2024-06-30] MED LIST changes: +BUSP30TA PO; +BUTA1CAP PO; +CLON0.5T17 PO; +CYCL-707 PO; +GABA-1172 PO; -GABA-282 PO; +METF500T13 PO; +NAPR-837 PO
== END ==
LOC: M EMP 15:03
PROVIDERS: ATTEND Family Medicine
DX: Z11.52 Encounter for screening for COVID-19 (principal)

== ENCOUNTER → 2024-09-27 | Outpatient (CLI) | payer BC ==
[2024-09-27 14:36] LABS: BASO % 0.3 % (0.0-1.0); EOS # 0.1 10^3/uL (0.0-0.5); HEMATOCRIT 39.9 % (36.0-47.0); HEMOGLOBIN 13.4 g/dl (12.0-15.5); LYMPH # 2.6 10^3/uL (1.5-5.0); LYMPH % 37.8 % (24.0-44.0); MEAN CORPUSCULAR HEMOGLOBIN 28.5 pg (27.0-33.0); MEAN CORPUSCULAR HGB CONC 33.6 g/dl (32.0-36.5); MEAN CORPUSCULAR VOLUME 84.7 fl (80.0-96.0); MONO # 0.4 10^3/uL (0.0-0.8); MONO % 6.4 % (2.0-8.0); NEUTROPHILS # 3.7 10^3/uL (1.5-8.5); NEUTROPHILS % 53.2 % (36.0-66.0); PLATELET COUNT, AUTOMATED 257 10^3/uL (150-450); RED BLOOD COUNT 4.71 10^6/uL (4.00-5.40); WHITE BLOOD COUNT 6.9 10^3/uL (4.0-10.0)
[2024-09-27 14:41] LABS: APPEARANCE, URINE HAZY (CLEAR); BACTERIA, URINE AUTO 1+ (NEGATIVE); BILIRUBIN, URINE AUTO NEGATIVE (NEGATIVE); BLOOD, URINE BLOOD NEGATIVE (NEGATIVE); COLOR, URINE YELLOW (YELLOW); GLUCOSE, URINE (UA) AUTO NEGATIVE (NEGATIVE); KETONE, URINE AUTO NEGATIVE (NEGATIVE); LEUKOCYTE ESTERASE, URINE AUTO TRACE (NEGATIVE); MUCUS, URINE SMALL (NEGATIVE); NITRITE, URINE AUTO NEGATIVE (NEGATIVE); PROTEIN, URINE AUTO NEGATIVE (NEGATIVE); RBC, URINE AUTO 1 /HPF (0-3); SPECIFIC GRAVITY URINE AUTO 1.019 (1.002-1.035); SQUAMOUS EPITHELIAL CELL UR AU 9 /HPF (0-6); UROBILINOGEN, URINE AUTO 0.2 mg/dL (0.0-2.0); WBC, URINE AUTO 3 /HPF (0-3)
[2024-09-27 15:01] LABS: HEMATOCRIT 39.9 % (36.0-47.0)
[2024-09-27 15:15] LABS: FREE T4 1.05 NG/DL (0.89-1.76)
[2024-09-27 15:16] LABS: ALBUMIN 3.7 G/DL (3.2-5.2); ALKALINE PHOSPHATASE 58 U/L (35-104); ALT/SGPT 29 U/L (7.0-40); AST/SGOT 15 U/L (<34); BILIRUBIN,TOTAL 0.3 MG/DL (0.3-1.2); BLOOD UREA NITROGEN 8 MG/DL (9-23); CALCIUM LEVEL 9.5 MG/DL (8.5-10.1); CARBON DIOXIDE LEVEL 28 MMOL/L (20-31); CHLORIDE LEVEL 105 MMOL/L (98-107); CHOLESTEROL LEVEL 195 MG/DL (<200); CHOLESTEROL RISK RATIO 3.72 (<5); CREATININE FOR GFR 0.73 MG/DL (0.55-1.30); FERRITIN 10.2 NG/ML (7.3-270.7); GLOMERULAR FILTRATION RATE > 90.0 (>60); GLUCOSE, FASTING 81 MG/DL (60-100); HDL CHOLESTEROL 52.3 MG/DL (>40); IRON (FE) 38 UG/DL (50-170); LDL CHOLESTEROL 119.5 MG/DL (<100); NON-HDL-C 142.7 MG/DL; PERCENT SATURATION 12.5 % (13.2-45.0); POTASSIUM SERUM 4.2 MMOL/L (3.5-5.1); SODIUM LEVEL 141 MMOL/L (136-145); THYROID STIMULATING HORMONE 1.935 uIU/ML (0.55-4.78); TOTAL IRON BINDING CAPACITY 304 UG/DL (250-425); TOTAL PROTEIN 6.6 G/DL (5.7-8.2); TRIGLYCERIDES LEVEL 116 MG/DL (<150)
[2024-09-27 15:17] LABS: TOTAL 25(OH) VITAMIN D 23.8 NG/ML (20.0-100.0); VITAMIN B12 LEVEL 539 PG/ML (211-911)
[2024-09-27 16:56] LABS: HEMOGLOBIN A1c 4.8 % (4.0-6.0)
[2024-09-27 17:17] LABS: FREE T3 3.5 PG/ML (2.3-4.2)
== END ==
LOC: M RAD 12:48
PROVIDERS: ATTEND Registered Nurse
DX: M54.2 Cervicalgia (principal); R53.83 Other fatigue; E66.9 Obesity, unspecified

== ENCOUNTER → 2025-03-14 | Outpatient (CLI) | payer BC ==
[~2025-03-14] MED LIST changes: +LAMO-18 PO; -LAMO25TA4 PO
== END ==
LOC: M LAB 07:02
PROVIDERS: ATTEND Obstetrics & Gynecology
DX: E28.39 Other primary ovarian failure (principal)

== ENCOUNTER → 2025-04-11 | Outpatient (CLI) | payer BC | LOC: M LAB 06:59 | PROVIDERS: ATTEND Obstetrics & Gynecology | DX: E28.2 Polycystic ovarian syndrome (principal) ==